=== PATIENT | male | born 1990 | race Caucasian/White ===

== ENCOUNTER 2018-09-09 23:59 | Emergency (ER) | payer OTHER ==
[~2018-09-09] VITALS: Ht 172.7 cm; Wt 106.6 kg
[2018-09-10 00:07] VITALS: Ht 172.7 cm; Wt 106.6 kg
[2018-09-10 00:57] VITALS: BP 154/74
== END 2018-09-10 00:57 | disposition home or self-care (01) ==
LOC: ED 23:59
DX: Z13.9 Encounter for screening, unspecified (principal)
CPT/HCPCS: 87491; 87591